=== PATIENT | female | born 1995 | race Caucasian/White ===

== ENCOUNTER 2017-06-24 22:20 | Emergency (ER) | payer OTHER ==
[2017-06-24 22:26] VITALS: BP 140/80
[2017-06-24] MEDS ORDERED: Ketorolac INJ* 60 MG/2 ML VIAL IM ONE (23:26)
[2017-06-24 23:43] LABS: Urine Bilirubin Negative (Negative); Urine Glucose Negative (Negative); Urine Nitrite Negative (Negative)
[2017-06-24 23:49] LABS: UR Preg Internal Control QC Line Present
[2017-06-24 23:50] LABS: Manual Entry Verification ABI0007
[2017-06-25] MEDS ORDERED: Lidocaine PATCH 5%* 1 PATCH TRANSDERM ONE (00:21)
[2017-06-25] MEDS ORDERED: traMADol TAB* 50 MG PO ONE (00:21)
--- NOTE | 2017-06-25 07:35 | RAD ---
Indication: Coccygeal pain. 2 views of the sacrum and coccyx demonstrates no fracture of the sacrum. Angulated coccyx is felt to represent chronic changes. Sacral foramina and sacroiliac joints are unremarkable. IMPRESSION: No definite fracture of the sacrum is noted. 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
[2017-06-25] MEDS ORDERED: Lidocaine Patch REMOVE* 1 NOTE MISC SCH (21:00)
--- NOTE | 2017-07-08 15:43 | ED ---
Paradise Yoder Kyle, scribed for Ayan Montmeayor MD on 06/24/17 at 2301 . Back Pain - HPI Summary HPI Summary: This is a 22 yo female presenting to the ED w/ c/o back pain that began after falling on her tailbone last week. She reports that she was dropped from a friends arms onto the sidewalk. She reports that certain positions hurt more, specifically going to the bathroom is the worst. She also reports some difficulty controlling her bladder. She specifically reports that after she got out of the car the other day she had wet herself quite a bit. She reports that she was seen in Urgent Care and told that it was broken by touch. She would like to know if there is anything else going on. She has been taking Tylenol for the pain. She does admit to some alcohol at the time of the injury. - History of Current Complaint Chief Complaint: EDBackInjuryPain Stated Complaint: FALL/WEEK AGO, TAILBONE PAIN Time Seen by Provider: 06/24/17 22:41 Hx Obtained From: Patient Hx Last Menstrual Period: Current Onset/Duration: Sudden Onset Onset/Duration: Started Weeks Ago - 1 Timing: Constant Back Pain Location: Is Diffuse Severity Initially: Severe Severity Currently: Severe Pain Intensity: 8 Pain Scale Used: 0-10 Numeric Character: Sharp, Throbbing Aggravating Symptom(s): Movement Alleviating Symptom(s): Position Associated Signs And Symptoms: Positive: Bladder Incontinence - Allergies/Home Medications Allergies/Adverse Reactions: Allergies Allergy/AdvReac Type Severity Reaction Status Date / Time No Known Allergies Allergy Verified 06/24/17 22:26 PMH/Surg Hx/FS Hx/Imm Hx Previously Healthy: Yes Endocrine/Hematology History: Denies: Hx Diabetes Infectious Disease History: Denies: Traveled Outside the [place] in Last 30 Days - Family History Known Family History: Negative: Blood Disorder - Social History Occupation: Student Lives: Dormitory/Roommates Alcohol Use: Occasionally Substance Use Type: Reports: None Smoking Status (MU): Never Smoked Tobacco Review of Systems Negative: Fever, Chills Negative: Erythema Negative: Sore Throat Negative: Chest Pain Negative: Shortness Of Breath, Cough Negative: Abdominal Pain, Vomiting, Nausea Positive: incontinence. Negative: burning, dysuria Positive: Other - Back pain. Negative: Myalgia Negative: Rash Neurological: Other - NEGATIVE: dizziness Negative: Weakness All Other Systems Reviewed And Are Negative: Yes Physical Exam - Summary Physical Exam Summary: Constitutional: Well-developed, Well-nourished, Alert. (-) Distressed Skin: Warm, Dry HENT: Normocephalic; Atraumatic Eyes: Conjunctiva normal Neck: Musculoskeletal ROM normal neck. (-) JVD, (-) Stridor, (-) Tracheal deviation Cardio: Rhythm regular, rate normal, Heart sounds normal; Intact distal pulses; The pedal pulses are 2+ and symmetric. Radial pulses are 2+ and symmetric. (-) Murmur Pulmonary/Chest wall: Effort normal. (-) Respiratory distress, (-) Wheezes, (-) Rales Abd: Soft, (-) Tenderness, (-) Distension, (-) Guarding, (-) Rebound Musculoskeletal: (-) Edema. Coccygeal tenderness. Lower extremity 5/5/, distal sensation intact. Lymph: (-) Cervical adenopathy Neuro: Alert, Oriented x3 Psych: Mood and affect Normal Triage Information Reviewed: Yes Vital Signs On Initial Exam: Initial Vitals Temp Pulse Resp BP Pulse Ox 99.0 F 109 16 140/80 99 06/24/17 22:20 06/24/17 22:20 06/24/17 22:20 06/24/17 22:20 06/24/17 22:20 Vital Signs Reviewed: Yes Diagnostics - Vital Signs Vital Signs Temp Pulse Resp BP Pulse Ox 06/24/17 22:20 99.0 F 109 16 140/80 99 - Laboratory Lab Statement: Any lab studies that have been ordered have been reviewed, and results considered in the medical decision making process. - Radiology Sacrum and Coccyx XR Xray Interpretation: Positive (See Comments) - Coccyx breaks off at an acute angle. Suspect an acute displacement. Radiology Interpretation Completed By: ED Physician Re-Evaluation - Re-Evaluation First Eval Re-Evaluation Time: 00:21 Comment: Reviewed her XR results with the pt and expalined that the radiologist will interpret in the morning. Back Pain Course/Dx - Course Assessment/Plan: This is a 22 yo female presenting to the ED w/ c/o back pain that began after falling on her tailbone last week. She reports that she was dropped from a friends arms onto the sidewalk. She reports that certain positions hurt more, specifically going to the bathroom is the worst. She also reports some difficulty controlling her bladder. She specifically reports that after she got out of the car the other day she had wet herself quite a bit. She reports that she was seen in Urgent Care and told that it was broken by touch. She would like to know if there is anything else going on. She has been taking Tylenol for the pain. She does admit to some alcohol at the time of the injury. Wet read of Sacrum/Coccyx XR as read by ED physician reveals Coccyx breaks off at an acute angle. Suspect an acute displacement. She hsa no signs of urinary retention. Reviewed XR results with the pt and explained the radiologists with read in the morning. In the ED course, pt received Toradol, Ultram and a Lidocaine Patch. She will be D/C to home with Dx of coccyx fracture, Rx for Ultram and Lidocaine patch and a follow up with her PCP. She understands and agrees. Elevated BP noted and advised to f/u with PCP. - Diagnoses Provider Diagnoses: Fractured coccyx Discharge - Discharge Plan Condition: Stable Disposition: HOME Prescriptions: Lidocaine PATCH 5%* [Lidoderm 5% Patch*] 1 patch TRANSDERM DAILY #30 patch traMADol TAB* [Ultram*] 50 mg PO BEDTIME PRN #5 tab MDD 1 PRN Reason: Pain - Moderate To Severe Patient Education Materials: Coccyx Injury (ED) Forms: *Work Release Referrals: Non Staff,Doctor [Primary Care Provider] - 5 Days (Follow up with your primary care physician in the next 3-5 days. ) The documentation as recorded by the Paradise malik Kyle accurately reflects the service I personally performed and the decisions made by me, Ayan Montemayor MD.
== END 2017-06-25 00:46 | disposition home or self-care (01) ==
LOC: ED 22:20
DX: S32.2XXA Fracture of coccyx, initial encounter for closed fracture (principal); W04.XXXA Fall while being carried or supported by other persons, initial encounter; Y92.9 Unspecified place or not applicable
CPT/HCPCS: 72220; 81003; 81025; 96372; 99282; A9270-GY; J1885

== ENCOUNTER → 2018-11-25 17:43 | Emergency (ER) | payer OTHER ==
[~2018-11-25 17:43] MED LIST: Ketorolac INJ* 30 MG/ML 1 ML VIAL IV PUSH ONE; Metoclopramide IV* 5 MG/ML 2 ML VIAL IV SLOW PU ONE; NS 0.9% 1000 ML** 1,000 ML IV ONE
[2018-11-25 19:33] VITALS: BP 146/69
[2018-11-25 20:50] LABS: ABS Basophils 0 10^3/ul (0-0.2); ABS Eosinophils 0.1 10^3/ul (0-0.6); ABS Lymphocytes 2.6 10^3/ul (1.0-4.8); ABS Monocytes 0.5 10^3/ul (0-0.8); ABS Neutrophils 6.2 10^3/ul (1.5-7.7); ABS Nucleated RBC 0 10^3/ul; Eosinophil % 0.8 %; Hematocrit 44 % (35-47); Hemoglobin 15.1 g/dl (12.0-16.0); Lymphocyte % 27.2 %; Mean Corpuscular HGB Conc 35 g/dl (31-36); Mean Corpuscular Hemoglobin 31 pg (27-31); Mean Corpuscular Volume 90 fL (80-97); Mean Platelet Volume 8.1 fL (7.4-10.4); Nucleated Red Blood Cells % 0; Platelet Count 274 10^3/ul (150-450); Red Blood Count 4.87 10^6/ul (4.00-5.40); Red Cell Distribution Width 12 % (10.5-15); White Blood Count 9.4 10^3/ul (3.5-10.8)
[2018-11-25 21:08] LABS: ALT 16 U/L (7-52); AST 15 U/L (13-39); Albumin/Globulin Ratio 1.7 (1-3); Alkaline Phosphatase 83 U/L (34-104); Anion Gap 9 mmol/L (2-11); BUN/Creatinine Ratio 8.7 (8-20); Blood Urea Nitrogen 6 mg/dL (6-24); C Reactive Protein 5.98 mg/L (<8.01); CO2 Carbon Dioxide 24 mmol/L (22-32); Calcium 9.8 mg/dL (8.6-10.3); Chloride 105 mmol/L (101-111); EGFR African American 128.7 (>60); EGFR Non-African American 106.4 (>60); Glucose 102 mg/dL (70-100); Potassium 3.8 mmol/L (3.5-5.0); Sodium 138 mmol/L (135-145)
[2018-11-25 21:14] LABS: HCG Pregnancy < 0.60 mIU/mL
--- NOTE | 2018-11-25 22:59 | ED ---
GI/ HPI - HPI Summary HPI Summary: 23-year-old female presents to nausea vomiting diarrhea for the past week. She denies any recent travel. She hasn't been camping or drinking any foul water. She is chronically on doxycycline for acne. She denies any blood in her stool. No one else sick. Has no medical conditions. She admits to generalized abdominal pain. No fevers. She admits to occasional cough. No chest pain or shortness breath. No sore throat. Has no medical conditions. Was seen at urgent care was given Zofran has not been able to stop vomiting. - History of Current Complaint Chief Complaint: EDNauseaVomitDiarrh Time Seen by Provider: 11/25/18 21:00 Stated Complaint: VOMITING/DIARRHEA Hx Last Menstrual Period: Current Pain Intensity: 0 - Allergy/Home Medications Allergies/Adverse Reactions: Allergies Allergy/AdvReac Type Severity Reaction Status Date / Time No Known Allergies Allergy Verified 06/24/17 22:26 PMH/Surg Hx/FS Hx/Imm Hx Endocrine/Hematology History: Denies: Hx Diabetes Infectious Disease History: No Infectious Disease History: Denies: Traveled Outside the [place] in Last 30 Days - Family History Known Family History: Negative: Blood Disorder - Social History Alcohol Use: Occasionally Substance Use Type: Reports: None Smoking Status (MU): Never Smoked Tobacco Review of Systems Negative: Fever Negative: Chest Pain Negative: Shortness Of Breath Positive: Abdominal Pain, Vomiting, Diarrhea, Nausea All Other Systems Reviewed And Are Negative: Yes Physical Exam Triage Information Reviewed: Yes Vital Signs On Initial Exam: Initial Vitals Temp Pulse Resp BP Pulse Ox 97.4 F 131 18 139/92 99 11/25/18 17:52 11/25/18 17:52 11/25/18 17:52 11/25/18 17:52 11/25/18 17:52 Vital Signs Reviewed: Yes Appearance: Positive: Well-Appearing Skin: Positive: Warm, Dry Head/Face: Positive: Normal Head/Face Inspection Eyes: Positive: Normal, EOMI, MAREN ENT: Positive: Normal ENT inspection, Pharynx normal, TMs normal Respiratory/Lung Sounds: Positive: Clear to Auscultation, Breath Sounds Present Cardiovascular: Positive: Normal, RRR Abdomen Description: Positive: Soft, Other: - mild diffuse abd tenderness Bowel Sounds: Positive: Present Musculoskeletal: Positive: Normal Neurological: Positive: Normal Psychiatric: Positive: Normal Diagnostics - Vital Signs Vital Signs Temp Pulse Resp BP Pulse Ox 11/25/18 19:32 98.9 F 140 20 146/69 100 11/25/18 17:52 97.4 F 131 18 139/92 99 - Laboratory Lab Results: Lab Results 11/25/18 11/25/18 Range/Units 20:45 20:45 WBC 9.4 (3.5-10.8) 10^3/ul RBC 4.87 (4.00-5.40) 10^6/ul Hgb 15.1 (12.0-16.0) g/dl Hct 44 (35-47) % MCV 90 (80-97) fL MCH 31 (27-31) pg MCHC 35 (31-36) g/dl RDW 12 (10.5-15) % Plt Count 274 (150-450) 10^3/ul MPV 8.1 (7.4-10.4) fL Neut % (Auto) 65.9 % Lymph % (Auto) 27.2 % Lea % (Auto) 5.6 % Eos % (Auto) 0.8 % Baso % (Auto) 0.5 % Absolute Neuts (auto) 6.2 (1.5-7.7) 10^3/ul Absolute Lymphs (auto) 2.6 (1.0-4.8) 10^3/ul Absolute Monos (auto) 0.5 (0-0.8) 10^3/ul Absolute Eos (auto) 0.1 (0-0.6) 10^3/ul Absolute Basos (auto) 0 (0-0.2) 10^3/ul Absolute Nucleated RBC 0 10^3/ul Nucleated RBC % 0 Sodium 138 (135-145) mmol/L Potassium 3.8 (3.5-5.0) mmol/L Chloride 105 (101-111) mmol/L Carbon Dioxide 24 (22-32) mmol/L Anion Gap 9 (2-11) mmol/L BUN 6 (6-24) mg/dL Creatinine 0.69 (0.51-0.95) mg/dL Est GFR ( Amer) 128.7 (>60) Est GFR (Non-Af Amer) 106.4 (>60) BUN/Creatinine Ratio 8.7 (8-20) Glucose 102 H (70-100) mg/dL Calcium 9.8 (8.6-10.3) mg/dL Magnesium 2.0 (1.9-2.7) mg/dL Total Bilirubin 0.50 (0.2-1.0) mg/dL AST 15 (13-39) U/L ALT 16 (7-52) U/L Alkaline Phosphatase 83 (34-104) U/L C-Reactive Protein 5.98 (<8.01) mg/L Total Protein 8.0 (6.4-8.9) g/dL Albumin 5.0 (3.2-5.2) g/dL Globulin 3.0 (2-4) g/dL Albumin/Globulin Ratio 1.7 (1-3) Lipase 13 (11.0-82.0) U/L Beta HCG, Quant < 0.60 mIU/mL Result Diagrams: 11/25/18 20:45 11/25/18 20:45 Lab Statement: Any lab studies that have been ordered have been reviewed, and results considered in the medical decision making process. Re-Evaluation - Re-Evaluation First Eval Re-Evaluation Time: 22:59 Change: Improved Comment: less nausous Second Eval Comment: tolerated crackers GIGU Course/Dx - Course Course Of Treatment: 23-year-old female presents to nausea vomiting diarrhea for the past week. She denies any recent travel. She hasn't been camping or drinking any foul water. She is chronically on doxycycline for acne. She denies any blood in her stool. No one else sick. Has no medical conditions. She admits to generalized abdominal pain. No fevers. She admits to occasional cough. No chest pain or shortness breath. No sore throat. Has no medical conditions. Was seen at urgent care was given Zofran has not been able to stop vomiting. On exam mild diffuse abdominal tenderness. wbc, normal. CRP normal. electrolytes normal. Gave Reglan fluids and feeling better. Was able to tolerate crackers and juice in the ED. We'll discharge with Reglan. Patient was unable to provide a stool sample here so will send with stool kit home to follow up with IC. Patient understands agrees with plan. - Diagnoses Differential Diagnoses - Female: Gastroenteritis (Viral), Gastroenteritis ( Bacterial), Urinary Tract Infection Provider Diagnoses: Nausea vomiting and diarrhea, Abdominal pain Discharge - Sign-Out/Discharge Documenting (check all that apply): Patient Departure Patient Received Moderate/Deep Sedation with Procedure: No - Discharge Plan Condition: Good Disposition: HOME Prescriptions: Metoclopramide TAB* [Reglan TAB*] 10 mg PO Q6H #12 tab Patient Education Materials: Acute Diarrhea (ED) Referrals: No Primary Care Phys,NOPCP [Primary Care Provider] - Additional Instructions: Can take reglan every 6 hours as needed for nausea Drink small amounts of fluid as tolerated When able to eat follow BRAT diet: Bananas, rice, applesauce, toast Take ibuprofen or Tylenol for pain as needed every 6 hours Follow up with [facility] Return to ED if develop fever that does not respond to Tylenol or ibuprofen, severe abdominal pain, or any new or worsening symptoms - Billing Disposition and Condition Condition: GOOD Disposition: Home
== END | disposition home or self-care (01) ==
LOC: ED 17:43
DX: R11.2 Nausea with vomiting, unspecified (principal); R19.7 Diarrhea, unspecified; R10.9 Unspecified abdominal pain
CPT/HCPCS: 36415; 80053; 83690; 83735; 84702; 85025; 86140; 96361; 96374; 96375; 99282; J1885; J2765